=== PATIENT | female | born 1995 ===

== ENCOUNTER → 2018-07-29 18:52 | Outpatient (REF) | payer OTHER, SELFPAY ==
[2018-07-29 19:53] LABS: Add Manual Diff / Slide Review NO; Basophils Absolute Auto 0 /uL (0-100); Basophils Percent Auto 0.4 % (0-2); Eosinophils Absolute Auto 100 /uL (0-450); Eosinophils Percent Auto 1.1 % (2-4); Hematocrit 40.8 % (36-46); INR 0.9 (0.9-1.3); Lymphocytes Absolute Auto 1600 /uL (1100-4500); Lymphocytes Percent Auto 28.2 % (25-40); Mean Corpuscular HGB Conc 34.3 % (30-36); Mean Corpuscular Hemoglobin 31.3 PG (26-34); Mean Corpuscular Volume 91.3 fL (80-100); Monocytes Absolute Auto 500 /uL (0-900); Monocytes Percent Auto 7.9 % (3-14); Neutrophils Absolute Auto 3600 /uL (1500-7000); Neutrophils Percent Auto 62.4 % (50-75); Platelet Count 276 X10^3/uL (150-400); Red Blood Cell Count 4.47 X10^6/uL (4.0-5.2); White Blood Cell Count 5.8 X10^3/uL (4.5-11.0)
[2018-07-29 19:56] LABS: PTT Partial Thromboplastin Tim 30 SECONDS (26.4-36.2)
[2018-07-29 20:01] LABS: HEMOLYSIS < 15 (0-50); Iron 134 ug/dL (37-170)
[2018-07-29 20:16] LABS: Percent Iron Saturation 33 % (15-50); Total Iron Binding Capacity 407 ug/dL (265-497)
[2018-07-29 20:17] LABS: Transferrin 331 mg/dL (206-381)
[2018-07-29 20:44] LABS: Ferritin 12.5 ng/mL (6.27-137)
[2018-07-29 20:58] LABS: Vitamin B12 347 pg/mL (239-931)
== END ==
LOC: LAB 18:52
PROVIDERS: Visit Provider Family Medicine
DX: D50.9 Iron deficiency anemia, unspecified (principal); R23.8 Other skin changes; E53.8 Deficiency of other specified B group vitamins
CPT/HCPCS: 36415; 82607; 82728; 83540; 83550; 85025; 85610; 85730